=== PATIENT | male | born 1935 | race Caucasian/White ===

== ENCOUNTER 2017-07-03 09:38 | Day surgery (SDC) | payer BC, SELFPAY ==
[~2017-07-03 09:38] MED LIST: AMLO10 PO; ATOR20 PO; CARV6.25; CYAN1000; EZET10; Flomax0.4 MG PO; HYDACE5 PO; Hydrocodone-Ap1 EA23 PO; LEVSOD150 PO; METO25ER PO; ROSUVASTATIN 20 MG; TAMS.4ER PO
[2018-02-21] MEDS ORDERED: METO50ER PO (13:47)
== END 2017-07-03 22:37 | disposition home or self-care (01) ==
LOC: US 09:38
PROC: 07BH3ZX Excision of Right Inguinal Lymphatic, Percutaneous Approach, Diagnostic (ICD-10-PCS; principal; 2017-07-03)
DX: C7A.8 Other malignant neuroendocrine tumors (principal); C34.12 Malignant neoplasm of upper lobe, left bronchus or lung; C79.71 Secondary malignant neoplasm of right adrenal gland; C79.72 Secondary malignant neoplasm of left adrenal gland; C77.2 Secondary and unspecified malignant neoplasm of intra-abdominal lymph nodes; C77.0 Secondary and unspecified malignant neoplasm of lymph nodes of head, face and neck; F17.210 Nicotine dependence, cigarettes, uncomplicated; I10 Essential (primary) hypertension; E78.00 Pure hypercholesterolemia, unspecified
CPT/HCPCS: 38505; 76942; 88305; 88341; 88342